=== PATIENT | female | born 1955 | race Caucasian/White ===

== ENCOUNTER → 2021-05-05 12:19 | Outpatient (BNVA) | payer MEDICARE, SELFPAY | PROVIDERS: PCP Hospitalist; Referring Provider Hospitalist; Visit Provider Nurse Practitioner | DX: Z13.89 Encounter for screening for other disorder (principal) | CPT/HCPCS: Q3014 ==

== ENCOUNTER 2021-06-13 11:52 | Day surgery (SDC) | payer MEDICARE, OTHER, SELFPAY ==
--- NOTE | 2021-06-12 11:01 | HO.ANESPROP2 ---
Documented by User: Nasreen Amanda NP 06/12/21 11:02 HPI - Anesthesia Eval Consult details Narrative: 65yo F for Colonoscopy PMFSH Active Problems Active Problems: All Active Problems (Updated 06/07/21 @ 15:25 by Madison Albarado, LYNDA) Seasonal allergies (Acute) Depression (Acute) High cholesterol (Acute) Positive colorectal cancer screening using Cologuard test (Acute) Past Medical History Medical History Anxiety and depression Depression Elevated cholesterol Seasonal allergies Family History Family History Father CAD (coronary artery disease) Mother Heart disease Diabetes Brother Cardiac arrest Diabetes Family/Other Heart disease Surgical History Surgical History History of tonsillectomy Social History Social History Patient Tobacco Use Status: Never used Tobacco Use of substances other than those prescribed or required for medical reasons: No Are you DNR?: No Advance Directives: No Advance Directives Information Provided: Yes Recently lost weight without trying: No Nutrition Risks: No Nutritional Risk Meds Allergies Allergy/AdvReac Type Severity Reaction Status Date / Time No Known Allergies Allergy Verified 06/07/21 15:26 Home Medications Medication Instructions Recorded Confirmed Last Taken Type simvastatin 20 mg tablet 1 tab PO QPM 06/07/21 06/07/21 Unknown History Exam Exam Date and Time: June 12, 2021 1101 Assessment and Plan Assessment Anesthesia Assessment: Chart Reviewed Documented by User: Mau Ivey MD 06/13/21 14:59 PMFSH Past Medical History Medical History Anxiety and depression Depression Elevated cholesterol Seasonal allergies Family History Family History Father CAD (coronary artery disease) Mother Heart disease Diabetes Brother Cardiac arrest Diabetes Family/Other Heart disease Family history of problems with anesthesia: No Surgical History Surgical History History of tonsillectomy History of Problems with Anesthesia: No Social History Social History Patient Tobacco Use Status: Never used Tobacco Use of substances other than those prescribed or required for medical reasons: No Are you DNR?: No Advance Directives: No Advance Directives Information Provided: Yes Recently lost weight without trying: No Nutrition Risks: No Nutritional Risk Meds Allergies Allergy/AdvReac Type Severity Reaction Status Date / Time No Known Allergies Allergy Verified 06/07/21 15:26 Home Medications Medication Instructions Recorded Confirmed Last Taken Type simvastatin 20 mg tablet 1 tab PO QPM 06/07/21 06/07/21 Unknown History Exam Airway Mallampati Class: II TM Dist: >3cm Neck ROM: Full Loose/Missing/Broken Teeth: No Assessment and Plan Assessment Anesthesia Assessment: Anesthesia Plan Discussed Final Anesthetic Review Family History of Problems with Anesthesia: No History of Problems with Anesthesia: No NPO: Yes ASA Class: II Final Preanesthetic Review: No Changes in Pt Med Stat, Meds/Allgs Chart Reviewed, Consent Obtained/Reviewed and Anes Risks/Benef Reviewed Patient Risk: Low Procedure Risk: Low Anesthetic Plan Anesthetic Plan: MAC: Disposition: Standard PACU
[2021-06-13 12:53] VITALS: BMI 24.3
[2021-06-13 13:09] VITALS: BP 173/81; PULSE 83; RESP 16; TEMP 36.6; O2SAT 97
--- NOTE | 2021-06-13 13:17 | PC.NURSE ---
MD URIBE AWARE THAT PATIENT ONLY TOOK ABOUT 1/3 OF HER ORAL PRPEP. PATIENTS STATE NO FOOD. AND YELLOW OUTPUT SEE THROUGH PER PATIENT.
[2021-06-13] MEDS: Lactated Ringers 1,000 ML 100 ML IVCONT (13:45)
--- NOTE | 2021-06-13 14:58 | MHC.SHP ---
Pre-Procedural Eval Section A Date of Service: 06/13/21 The patient is an INPATIENT: No The History & Physical has been completed within 30 days and I have reviewed it.: No Section B Chief Complaint: Colon screen, positive Cologuard Details of Present Illness: Colon cancer screening, positive Cologuard test Relevant Family History (Specify if Yes): No Relevant Social History: None Present Medications: see Short Stay Collaborative assessment Medical History: Significant History (anxiety and depression, high cholesterol) History of Previous Operations: Relevant previous surgery/procedure and date(s) (History of tonsillectomy) Allergies: Allergies Allergy/AdvReac Type Severity Reaction Status Date / Time No Known Allergies Allergy Verified 06/07/21 15:26 Review of Systems Sugical H&P ROS: Negative: Constitution, Cardiovascular, Respiratory and Gastrointestinal Exam Surgical H&P Exam: Normal: Heart, Normal: Lungs, Normal: Extremities and Normal: Abdomen Plan Diagnosis/Plan: Unchanged I have reviewed the history and physical and performed a pertinent physical examination on my patient. No changes have occurred unless specified.
--- NOTE | 2021-06-13 15:07 | P.OP_ITS ---
Operative Note Operative Note Date of Service: 06/13/21 Narrative: Pre-op diagnosis:?Colon cancer, positive Cologuard test Post-op diagnosis:?other (Colon polyps, diverticulosis, fair prep) Procedure:? COLONOSCOPY TILL CECUM WITH SNARE POLYPECTOMY AND SUBMUCOSAL INJECTION Consent: Indications for the procedure and potential complications of bleeding, perforation, reaction to medications and missed diagnosis were discussed with the patient and informed consent was obtained. Instrument: Olympus PCF H 190 L variable stiffness pediatric colonoscope Monitoring: Vital signs and clinical assessment, intermittent blood pressure monitoring, continuous EKG monitoring, Pulse oximetry and Carbon Dioxide monitoring were done throughout the procedure. Colon withdrawl time was 25 minutes. Procedure: The patient was placed in the left lateral decubitis position and pre-procedure medications were administered. After a digital rectal examination of the ano-rectum, the video colonoscope was inserted into the rectum and advanced through the colon to the cecum. The colonoscope was slowly withdrawn in a retrograde panoramic fashion and the colon mucosa was carefully examined including a retroflexed view of the rectum. Findings and interventions are described below. Procedure Difficulty:? Colon was long and tortuous and there was some loop formation? pressure applied to intubate the cecum Findings: Terminal Ileum: Not evaluated Cecum:? Partially evaluated due to fair prep. Ascending Colon: A 2.5 cms flat polyp at hepatic flexure at 80 cms - raised with 4 cc of Orise solution and removed with a hot snare.? Polypectomy site was not with Gin ink Transverse Colon:? Normal Descending Colon:? Normal Sigmoid Colon:? A 15 mm sessile polyp removed with a hot snare. Moderate diverticulosis Rectum:? Normal Ano-rectum:? Normal Colon preparation: Fair despite copious irrigation and poor some areas of the colon due to undigested vegetable matter which could not be suctioned Impression and Post Procedure Diagnosis: Colonoscopy Findings: ?Two medium to large sized polyps removed Moderate diverticulosis seen in the sigmoid colon Moderate hemorrhoids on retroflexed exam. Plan: Await pathology results Patient to schedule a fu appointment in the GI Clinic with? Constanza Hopson NP. Repeat Colonoscopy interval based on path results - in 1 year due to fair to poor prep and to check polypectomy site at the Hepatic flexure. (Pt admitted to taking 2 tablets of Dulcolax and drinking 1/3rd of her prep since her stool were clear . She did not eat or drink anything the day before her procedure). Above findings were reviewed with the patient and colon polyps and diverticulosis handouts were given in the discharge area Surgeon:?Latasha Price MD Anesthesia:?MAC (Dr Ivey) Was an Tax Senior Associate used for this Procedure?:?Yes Tax Senior Associate:?Gogo Alves Estimated blood loss (mL):?0 Pathology:?other (A. HEPATIC FLEXSURE POLYP AT 80 CM ? ORISE USED? B. SIGMOID POLYP) Condition:?stable Disposition:?PACU
[2021-06-13 16:10] VITALS: BP 84/44; PULSE 80; RESP 16; TEMP 36.5; O2SAT 95
[2021-06-13 16:25] VITALS: BP 112/67; PULSE 80; RESP 18; O2SAT 96
== END 2021-06-13 17:14 | disposition home or self-care (01) ==
PROVIDERS: Visit Provider Internal Medicine Gastroenterology
PROC: 0DJD8ZZ Inspection of Lower Intestinal Tract, Via Natural or Artificial Opening Endoscopic (ICD-10-PCS; CPT 45378; principal; 2021-06-13 13:30)
DX: R19.5 Other fecal abnormalities (principal); D12.3 Benign neoplasm of transverse colon; D12.5 Benign neoplasm of sigmoid colon; K57.30 Diverticulosis of large intestine without perforation or abscess without bleeding; K56.2 Volvulus
CPT/HCPCS: 45385; 45381; 88305; J2370; J3010

== ENCOUNTER 2022-12-26 16:08 | Emergency (ER) | payer OTHER, MEDICAID, SELFPAY ==
--- NOTE | ~2022-12-26 | XR_ITS ---
EXAMINATION: XR CHEST CLINICAL INFORMATION: Cough COMPARISON: None available. TECHNIQUE: 2 views of the chest were obtained. FINDINGS: The lungs are well expanded. There is no focal consolidation, edema, or effusion. Likely pleural thickening anteriorly in the left lower lung. No pneumothorax. The cardiomediastinal silhouette is within normal limits. No acute osseous abnormality. XR/XR chest 2V IMPRESSION: No acute pulmonary disease. Likely pleural thickening anteriorly in the left lower lung.
[2022-12-26 16:12] VITALS: BP 147/76; PULSE 77; RESP 18; TEMP 36.4; O2SAT 98; BMI 19.7
--- NOTE | 2022-12-26 16:12 | ED.URI ---
HPI - URI/Sore Throat General Chief Complaint: Upper Respiratory Symptoms Stated Complaint: dry cough for a week Related Data Home Medications Medication Instructions Recorded Confirmed simvastatin 20 mg tablet 1 tab PO QPM 06/07/21 06/07/21 Previous Rx's Medication Instructions Recorded cetirizine 10 mg capsule (Zyrtec) 10 mg PO DAILY 3 months #90 caps 02/04/21 Allergies Allergy/AdvReac Type Severity Reaction Status Date / Time No Known Allergies Allergy Verified 12/26/22 16:15 [facility] Past Medical History Medical History Anxiety and depression Depression Elevated cholesterol Seasonal allergies Surgical History History of tonsillectomy Family History Family History Father CAD (coronary artery disease) Mother Heart disease Diabetes Brother Cardiac arrest Diabetes Family/Other Heart disease Social History Social History Alcohol intake: never Patient Tobacco Use Status: Never used Tobacco Smoked in Last 30 Days: No Use of substances other than those prescribed or required for medical reasons: No Advance Directives: No Advance Directives Information Provided: No Physical Exam Vital Signs: Vital Signs: Last Vital Signs Temp 97.6 F 12/26/22 16:12 Pulse 77 12/26/22 16:12 Resp 18 12/26/22 16:12 BP 147/76 H 12/26/22 16:12 Pulse Ox 98 12/26/22 16:12 O2 Del Method Room Air 12/26/22 16:12 BMI result Body Mass Index 19.7 Course Course Course Narrative: This is a rapid medical exam. Deferred additional HPI, ROS, PE to primary provider. 67 yo female healthy here with dry cough x 1 week. No other symptoms. Will send viral testing, obtain CXR. VSS Medical Decision Making Lab Data Labs: Lab Results 12/26/22 Range/Units 16:27 Influenza Type A (PCR) NEGATIVE (Negative) Influenza Type B (PCR) NEGATIVE (Negative) RSV RNA Qual (PCR) NEGATIVE (Negative) SARS-CoV-2 RNA (RT-PCR) NEGATIVE (Negative) Discharge Plan Discharge Clinical Impression: Cough Patient Disposition: Elopement Prescriptions: No Action Zyrtec 10 mg capsule 10 mg PO DAILY 90 Days Qty: 90 0RF simvastatin 20 mg tablet 1 tab PO QPM Discharge Date/Time: 12/26/22 17:06
--- NOTE | 2022-12-26 16:36 | PC.NURSE ---
pt reports dry cough x2 weeks. pt corrected triage note which indicates cough x2 days. pt confirms x2 weeks
--- NOTE | 2022-12-26 16:59 | PC.NURSE ---
pt's was in room with pt. Registration recognized as an additional pt who is still in the waiting room on the tracker. This nurse did not realize they were also a waiting patient. Both patients got up and left the ED. I asked them to wait to be seen by the provider as they had not been seen yet, but he told me they were not going to wait and would come back later. Both patients left
--- NOTE | 2022-12-26 17:07 | PC.NURSE ---
pt left without being seen by [facility] provider. pt was triaged and decided to leave
[2022-12-26 17:15] LABS: Influenza A PCR NEGATIVE (Negative); Influenza B PCR NEGATIVE (Negative); Resp Syncy Virus RNA Qual PCR NEGATIVE (Negative); SARS COV2 PCR INHOUSE NEGATIVE (Negative)
== END 2022-12-26 17:06 | disposition left against medical advice (07) ==
PROVIDERS: Nurse Practitioner Family; Emergency Provider Emergency Medicine Emergency Medical Services; PCP Internal Medicine
DX: R05.9 Cough, unspecified (principal); Z20.828 Contact with and (suspected) exposure to other viral communicable diseases; Z20.822 Contact with and (suspected) exposure to COVID-19; Z79.899 Other long term (current) drug therapy
CPT/HCPCS: 0241U; 71046; 99283